=== PATIENT | male | born 1930 | race Caucasian/White ===

== ENCOUNTER 2017-07-12 16:02 | Emergency (ER) | payer MEDICARE ==
[~2017-07-12] VITALS: Ht 175.3 cm; Wt 108.9 kg
[~2017-07-12 16:02] MED LIST: ASPIR 8181 MG PO; ATROVENT HFA12.9 GM; ATROVENT INH; FINASTERIDE5 MG PO; INDOMETHACIN25 MG PO; LEVOTHYROXINE75 MCG PO; LORCET 101 TAB PO; LOVENOX30 MG/0.3 SC; METOPROLOL SUC200 MG PO; OMEPRAZOLE20 M1 PO; PROVENTIL HFA6.7 GM INH; SAW PALMETTO450 MG PO; TRAZODONE HCL100 MG PO; XARELTO15 MG PO
[2017-07-12] MEDS ORDERED: CEPHALEXIN500 MG PO (18:49)
== END 2017-07-12 18:55 | disposition home or self-care (01) ==
LOC: FSED 16:02
DX: S51.801A Unspecified open wound of right forearm, initial encounter (principal); W01.190A Fall on same level from slipping, tripping and stumbling with subsequent striking against furniture, initial encounter; Y92.013 Bedroom of single-family (private) house as the place of occurrence of the external cause
CPT/HCPCS: 99282

== ENCOUNTER → 2017-12-12 | Day surgery (SDC) | payer MEDICARE ==
[2017-12-11 10:37] LABS: BASOPHILS # (AUTO) 0.1 (0.0-0.1); BASOPHILS % 0.7 % (0.0-1.0); EOSINOPHILS # (AUTO) 0.4 (0.0-0.4); EOSINOPHILS % 4.8 % (0.0-6.0); HEMATOCRIT 39.3 % (38.2-49.6); HEMOGLOBIN 13.4 g/dL (14.0-18.0); LYMPHOCYTES # (AUTO) 1.4 (1.0-3.2); MEAN CORPUSCULAR HEMOGLOBIN 32.9 pg (28-32); MEAN CORPUSCULAR HGB CONC 34.1 g/dL (31-35); MEAN CORPUSCULAR VOLUME 96.6 fL (81-99); MONOCYTES # (AUTO) 0.8 (0.2-0.8); MONOCYTES % 8.8 % (4.4-11.3); NEUTROPHILS # (AUTO) 5.7 (2.1-6.9); NEUTROPHILS % 67.4 % (38.7-80.0); PLATELET COUNT 182 x10e3/uL (140-360); RED BLOOD COUNT 4.07 x10e6/uL (4.3-5.7); RED CELL DISTRIBUTION WIDTH 13.1 % (11.7-14.4)
[2017-12-11 10:48] LABS: INR 1.1; PROTHROMBIN TIME 13.4 seconds (11.9-14.5)
[2017-12-11 10:53] LABS: ANION GAP 14.7 mmol/L (8-16); BLOOD UREA NITROGEN 20 mg/dL (7-26); BUN/CREATININE RATIO 20 (6-25); CALCIUM 9.4 mg/dL (8.4-10.2); CARBON DIOXIDE 25 mmol/L (22-29); CHLORIDE 104 mmol/L (98-107); CREATININE, SERUM 0.99 mg/dL (0.72-1.25); EST GLOMERULAR FILTRATION RATE > 60 ML/MIN (60-); GLUCOSE 90 mg/dL (74-118); POTASSIUM 4.7 mmol/L (3.5-5.1); SODIUM 139 mmol/L (136-145)
--- NOTE | 2017-12-11 11:25 | Diagnostic Imaging Report ---
PROCEDURE: Frontal and lateral views of the chest. COMPARISON: Patients [facility], , CHEST 2 VIEWS, 03/15/2013, 12:38. INDICATIONS: PREOPERATIVE CHEST XRAY FOR PACEMAKER REPLACED FINDINGS: Lines/tubes: Stable left upper chest multilead cardiac device Lungs: The lungs are well inflated and clear. There is no evidence of pneumonia or pulmonary edema. Pleura: There is no pleural effusion or pneumothorax. Heart and mediastinum: Cardiac silhouette is unremarkable. Pulmonary vasculature is normal. Tortuous aorta Bones: No acute bony abnormality. Degenerative changes in the thoracic spine. Interval placement of left humeral head prosthesis. IMPRESSION: 1. No acute cardiopulmonary abnormalities. John Osborn M.D. Dictated by: John Osborn M.D. on 12/11/2017 at 11:29 Electronically approved by: John Osborn M.D. on 12/11/2017 at 11:29
[~2017-12-12] VITALS: Ht 167.6 cm; Wt 108.9 kg
[2017-12-12] VITALS (12 sets, daily range): BP systolic 144–168; BP diastolic 75–91
[~2017-12-12] MED LIST changes: +ALCORTIN A TOP; +BACITRACIN 50,000 UNIT VIAL ONE; +CEFAZOLIN SOD 1 GM VIAL ONE; +CENTRUM COMPLE1 EACH PO; +CEPHALEXIN500 MG PO; +DOCUSATE SODIU100 MG PO; +FENTANYL CITRATE/PF 100MCG/2 ML INJ ONE; +LIDOCAINE HCL 2% LOCAL 20 ML VIAL ONE; +MIDAZOLAM HCL 2 MG/2 ML VIAL ONE; +SODIUM CHLORIDE 0.9% 100 ML 100 ML ONE; +SODIUM CHLORIDE 0.9% 1000ML 1,000 ML ONE; +SODIUM CHLORIDE 0.9% 500ML 1,000 ML ONE; +SODIUM CHLORIDE 0.9% 500ML 500 ML ONE; +TAMSULOSIN HCL0.4 MG PO
--- NOTE | 2017-12-12 10:09 | Operative Report ---
DATE OF PROCEDURE: December 12, 2017 PROCEDURE: Dual-chamber pacemaker generator replacement and temporary pacemaker insertion. INDICATIONS: Sick sinus syndrome. COMPLICATIONS: None. ANESTHESIA: Versed, fentanyl and lidocaine. TECHNIQUE: The right groin was draped and prepped in the usual fashion. The area was anesthetized with lidocaine. A standard Seldinger technique was used to place a 6-Macedonian sheath into the right femoral vein without difficulty. Temporary pacemaker was inserted at the apex of the right ventricle. The patient was then redraped and reprepped. The left subclavicular area was anesthetized with lidocaine. A 10 blade scalpel was used to open the pacemaker pocket. The existing Medtronic generator was removed from the pocket. The pocket was irrigated with antibiotic solution. The leads were then attached to a new Medtronic generator. The pocket was irrigated with antibiotic solution. The generator was placed in the pocket and anchored in with some 2-0 silk. Two-0 Vicryl was then used for the subcutaneous closure and 2-0 Vicryl was used for subcuticular closure. There were no complications. CONCLUSION: Successful dual-chamber pacemaker replacement. Job#: [id number] REBA
== END | disposition home or self-care (01) ==
LOC: CATH LAB 06:20
PROVIDERS: ATTEND Internal Medicine Cardiovascular Disease
DX: I49.5 Sick sinus syndrome (principal); I44.2 Atrioventricular block, complete; I10 Essential (primary) hypertension; G47.30 Sleep apnea, unspecified; K21.9 Gastro-esophageal reflux disease without esophagitis; E07.9 Disorder of thyroid, unspecified; F32.9 Major depressive disorder, single episode, unspecified; Z01.810 Encounter for preprocedural cardiovascular examination; Z01.812 Encounter for preprocedural laboratory examination; Z01.818 Encounter for other preprocedural examination; Z68.38 Body mass index [BMI] 38.0-38.9, adult; Z87.891 Personal history of nicotine dependence; Z82.49 Family history of ischemic heart disease and other diseases of the circulatory system
CPT/HCPCS: 33228; 36415; 71046; 80048; 85025; 85610; 93005; C1785; J0690; J2001; J2250; J7030; J7040

== ENCOUNTER 2018-10-07 06:12 | Observation (INO) | payer MEDICARE, OTHER ==
[2018-10-02 11:28] LABS: BASOPHILS % 0.5 % (0.0-1.0); EOSINOPHILS # (AUTO) 0.3 (0.0-0.4); EOSINOPHILS % 3.2 % (0.0-6.0); HEMATOCRIT 38.5 % (38.2-49.6); HEMOGLOBIN 12.8 g/dL (14.0-18.0); LYMPHOCYTES # (AUTO) 1.4 (1.0-3.2); LYMPHOCYTES % 17.4 % (18.0-39.1); MEAN CORPUSCULAR HEMOGLOBIN 32.7 pg (28-32); MEAN CORPUSCULAR HGB CONC 33.2 g/dL (31-35); MEAN CORPUSCULAR VOLUME 98.2 fL (81-99); MONOCYTES # (AUTO) 0.7 (0.2-0.8); MONOCYTES % 9.1 % (4.4-11.3); NEUTROPHILS # (AUTO) 5.4 (2.1-6.9); PLATELET COUNT 169 x10e3/uL (140-360); RED BLOOD COUNT 3.92 x10e6/uL (4.3-5.7); RED CELL DISTRIBUTION WIDTH 13.2 % (11.7-14.4)
[2018-10-02 11:53] LABS: ALANINE AMINOTRANSFERASE 10 IU/L (0-55); ALBUMIN/GLOBULIN RATIO 0.8 (0.8-2.0); ALKALINE PHOSPHATASE 71 IU/L (40-150); ANION GAP 11.5 mmol/L (8-16); BLOOD UREA NITROGEN 18 mg/dL (7-26); BUN/CREATININE RATIO 17 (6-25); CALCIUM 8.9 mg/dL (8.4-10.2); CARBON DIOXIDE 25 mmol/L (22-29); CHLORIDE 105 mmol/L (98-107); CHOL/HDL RATIO 3.5 (3.9-4.7); CHOLESTEROL 147 MD/DL (0-199); CREATININE, SERUM 1.05 mg/dL (0.72-1.25); EST GLOMERULAR FILTRATION RATE > 60 ML/MIN (60-); GLUCOSE 80 mg/dL (74-118); HDL CHOLESTEROL 42 MG/DL (40-60); LDL CHOLESTEROL 86 MG/DL (60-130); POTASSIUM 4.5 mmol/L (3.5-5.1); SODIUM 137 mmol/L (136-145); TRIGLYCERIDES 95 MG/DL (0-149)
--- NOTE | 2018-10-02 11:57 | Diagnostic Imaging Report ---
EXAMINATION: PA and lateral views of the chest. COMPARISON: 12/11/2017 CLINICAL HISTORY: Preop for left heart catheter DISCUSSION: Lung volumes are low. No interval change in position of left subclavian approach implantable cardiac device body or leads. Left shoulder prosthesis partially visualized. Enlargement of the cardiac silhouette with prominence of the central pulmonary vasculature. Trace blunting of the left posterior costophrenic sulcus compatible with a small effusion. No acute osseous abnormality. IMPRESSION: Low lung volumes with pulmonary vascular congestion and a trace left pleural effusion. Signed by: Dr. Solomon Arnett M.D. on 10/02/2018 11:54 AM
[2018-10-02 12:53] LABS: INR 1.01; PARTIAL THROMBOPLASTIN TIME 28.3 seconds (23.8-35.5); PROTHROMBIN TIME 13.8 seconds (11.9-14.5)
[2018-10-07] VITALS (18 sets, daily range): BP systolic 133–153; BP diastolic 66–87
[~2018-10-07] VITALS: Ht 175.3 cm; Wt 108.9 kg
[~2018-10-07 06:12] MED LIST changes: -BACITRACIN 50,000 UNIT VIAL ONE; -CEFAZOLIN SOD 1 GM VIAL ONE; -FENTANYL CITRATE/PF 100MCG/2 ML INJ ONE; -LIDOCAINE HCL 2% LOCAL 20 ML VIAL ONE; -MIDAZOLAM HCL 2 MG/2 ML VIAL ONE; +MYRBETRIQ25 MG PO; +PROAIR HFA INH8.5 GM IH; -SODIUM CHLORIDE 0.9% 100 ML 100 ML ONE; -SODIUM CHLORIDE 0.9% 1000ML 1,000 ML ONE; -SODIUM CHLORIDE 0.9% 500ML 1,000 ML ONE; -SODIUM CHLORIDE 0.9% 500ML 500 ML ONE; +SPIRIVA18 MCG INH
[2018-10-07] MEDS ORDERED: FENTANYL CITRATE/PF 100MCG/2 ML INJ ONE (07:03)
[2018-10-07] MEDS ORDERED: HEPARIN SOD (PORCINE) 1000 UNIT/ML 30ML ONE (07:03)
[2018-10-07] MEDS ORDERED: LIDOCAINE HCL 2% LOCAL 20 ML VIAL ONE ×2 (07:03→08:13)
[2018-10-07] MEDS ORDERED: MIDAZOLAM HCL 2 MG/2 ML VIAL ONE ×2 (07:03→08:10)
[2018-10-07] MEDS ORDERED: NITROGLYCERIN/D5W 200 MCG/ML 250 ML ONE (07:04)
[2018-10-07] MEDS ORDERED: SODIUM CHLORIDE 0.9% 1000ML 1,000 ML ONE (07:04)
[2018-10-07] MEDS ORDERED: IOPAMIDOL 370 MG/ML 200 ML INFUS..BTL INJ ONE ×2 (07:04→08:10)
[2018-10-07] MEDS ORDERED: HEPARIN SOD/SOD CHLORIDE 2,000 ML ONE (07:04)
[2018-10-07] MEDS ORDERED: HEPARIN SOD/SOD CHLORIDE 1,000 ML ONE (08:10)
[2018-10-07] MEDS ORDERED: BIVALRIUDIN 250 MG/VIAL VIAL IV ONE (08:26)
[2018-10-07] MEDS ORDERED: CLOPIDOGREL BISULFATE 75 MG TAB ONE (08:27)
[2018-10-07] MEDS ORDERED: ASPIRIN 325 MG TAB ONE (08:27)
[2018-10-07] MEDS ORDERED: SODIUM CHLORIDE 0.9% 50ML 50 ML ONE (08:27)
[2018-10-07] MEDS ORDERED: ATROPINE SULFATE 0.1 MG/ML 10ML SYR ONE (08:32)
--- NOTE | 2018-10-07 08:45 | NUR ---
0845 Received pt form laboratory cureman Report written card per Toro PICKETT, Bed request per tele-tracker and house supv. Salud RN informed.[facility] with RCA stent fix with rt groin Mynx. No gross signs of pain,pallor,pressure or dysrhythmia.Left iv infusing w/o s/s infiltration. Family at bedside Scarlett . Resp shallow and regular 98% Room air.Back to baseline orientation Pt is SYCUAN. Abdomen soft and non tender denies necessity to defecate or urinate. Assist with po intake pt has no teeth Family will obtain from home later Bilateral PPx4 PD/DP. Denies CP or SOB. want tele observation tonight. Teletracker assigned 182. Side rail up call light at bedside ,side rails up Bed in low position. ds/rn
[2018-10-07] MEDS ORDERED: NITROGLYCERIN 0.4 MG SUBL SL PRN (09:00)
[2018-10-07] MEDS ORDERED: CLOPIDOGREL BISULFATE 75 MG TAB PO SCH (09:00)
[2018-10-07] MEDS: METOPROLOL TARTRATE 25 MG TAB PO SCH ×2 (09:00→17:14)
[2018-10-07] MEDS ORDERED: ASPIRIN 325 MG TAB PO SCH (09:00)
[2018-10-07] MEDS ORDERED: ASPIRIN 81 MG ENTERIC COATED PO SCH (09:15)
--- NOTE | 2018-10-07 10:15 | NUR ---
1015am Called report to Kody Person [id number]. Down time till 1300pm had Rt Mynx closure to groin. No gross signs pain ,pallor,pressure,or dysthrhmia. PPx4 present. Face to face report. Transported to floor care with tele and stretcher. Denies CP or SOB. Pt has copy os stent,mynx card and diagram of case. at bedside and present during escort. Tolerating po intake. gage/kody
--- NOTE | 2018-10-07 10:50 | NUR ---
Patient arrived to unit via stretcher in flat position. He was assisted to bed with staff help and tolerated well. Right groin intact, soft and no hematoma palpated. Spouse at the bedside. Patient instructed to lay flat until 1300 and voiced understanding. + pedal pulse. Will continue to monitor.
[2018-10-07] MEDS: SODIUM CHLORIDE 0.9% 1000ML 1,000 ML IV SCH ×2 (13:03→18:55)
--- NOTE | 2018-10-07 13:45 | NUR ---
Patient assisted to bathroom and back without any complaints. Call reyes and spouse by bedside
[2018-10-07] MEDS ORDERED: ACETAMINOPHEN 325 MG TAB PO PRN (14:45)
--- NOTE | 2018-10-07 15:06 | Operative Report ---
DATE OF PROCEDURE: SURGEON: Solomon Tejada MD PROCEDURES: 1. Left heart with an intracoronary stent placement in the right coronary artery. 2. Left heart catheterization. INDICATION: 1. Angina. 2. Coronary artery disease. ANESTHESIA: Versed, fentanyl, and lidocaine. COMPLICATIONS: None. TECHNIQUE: The right groin was draped and prepped in the usual fashion. The area was anesthetized with lidocaine. Standard Seldinger technique was used to place a 6-Kuwaiti sheath into the right femoral artery without difficulty. A JL4 catheter was used to selectively engage the left coronary artery. A 3DRC catheter was used to engage the right coronary artery and a pigtail catheter was used to perform a left ventriculogram. Attention was then turned to the 70% to 80% stenosis of the distal right coronary artery. An AL2 guiding catheter was used to selectively engage the right coronary artery. The patient was bolused with Angiomax and still added on an Angiomax drip. The patient was given 600 mg of Plavix. A Whisper wire was used to cross 70% to 80% stenosis. Stent was deployed directly at the site of stenosis, it was a 3.0 x 16 mm Synergy stent, which was deployed up to 16 atmospheres for 30 seconds. The stent was then postdilated with a 12 mm x 3.0 mm noncompliant balloon. Mynx device was used for closure. There was no residual stenosis. There were no complications. RESULTS: As follows: 1. Normal left main trunk. 2. There is a large left anterior descending artery, which gave rise to medium-sized diagonal branch. There were areas of ectasia in the proximal and mid left anterior descending artery with mild stenosis. 3. There was a medium-sized AV circumflex artery, which gave rise to a large bifurcating obtuse marginal branch. There was minimal disease in the circumflex system. 4. There was a large dominant right coronary artery, with some proximal areas of ectasia and 70% to 80% distal stenosis. 5. There was normal left ventricular size and function with an ejection fraction of 55% to 60%. There was [id number] mitral regurgitation. CONCLUSION: Successful stent placement in the right coronary artery without complication. Solomon Tejada MD [facility]/MODL /[id number] cc: Telly Nagy MD
--- NOTE | 2018-10-07 19:07 | NUR ---
Report received and walking rounds complete. Pt resting in bed and in no apparent distress. Pt on room air and tele. Pt groin site assessed with day shift nurse. All safety measures ensured. Pt encouraged to use call reyes for assistance. Pts to stay overnight.
[2018-10-07] MEDS ORDERED: ATORVASTATIN 20 MG TAB PO SCH (21:00)
[2018-10-08 00:31] VITALS: BP 137/76
[2018-10-08] MEDS: SODIUM CHLORIDE 0.9% 1000ML 1,000 ML IV SCH (05:04)
[2018-10-08 05:18] VITALS: BP 154/70
[2018-10-08 05:42] LABS: BASOPHILS % 0.5 % (0.0-1.0); EOSINOPHILS # (AUTO) 0.3 (0.0-0.4); EOSINOPHILS % 4.1 % (0.0-6.0); LYMPHOCYTES # (AUTO) 1.6 (1.0-3.2); MEAN CORPUSCULAR HEMOGLOBIN 32.8 pg (28-32); MEAN CORPUSCULAR HGB CONC 33.3 g/dL (31-35); MEAN CORPUSCULAR VOLUME 98.4 fL (81-99); MONOCYTES # (AUTO) 0.9 (0.2-0.8); MONOCYTES % 10.9 % (4.4-11.3); NEUTROPHILS # (AUTO) 5.4 (2.1-6.9); PLATELET COUNT 151 x10e3/uL (140-360); RED BLOOD COUNT 3.66 x10e6/uL (4.3-5.7); RED CELL DISTRIBUTION WIDTH 13.3 % (11.7-14.4)
[2018-10-08 06:06] LABS: ALANINE AMINOTRANSFERASE 13 IU/L (0-55); ALBUMIN 2.8 g/dL (3.5-5.0); ALBUMIN/GLOBULIN RATIO 0.8 (0.8-2.0); ALKALINE PHOSPHATASE 53 IU/L (40-150); BLOOD UREA NITROGEN 14 mg/dL (7-26); BUN/CREATININE RATIO 14 (6-25); CALCIUM 8.7 mg/dL (8.4-10.2); CARBON DIOXIDE 22 mmol/L (22-29); CHLORIDE 107 mmol/L (98-107); CHOL/HDL RATIO 3.7 (3.9-4.7); CHOLESTEROL 139 MD/DL (0-199); CREATININE, SERUM 0.97 mg/dL (0.72-1.25); EST GLOMERULAR FILTRATION RATE > 60 ML/MIN (60-); GLUCOSE 89 mg/dL (74-118); HDL CHOLESTEROL 38 MG/DL (40-60); LDL CHOLESTEROL 85 MG/DL (60-130); SODIUM 136 mmol/L (136-145); TRIGLYCERIDES 80 MG/DL (0-149)
--- NOTE | 2018-10-08 07:15 | NUR ---
pt alert resp even and unlabored and no distress noted, pt right side groin dressing clean dry and intact. pt has family member at bedside, pt has call light in reach.
--- NOTE | 2018-10-08 07:22 | NUR ---
report given and walking rounds complete.
[2018-10-08] MEDS ORDERED: PLAVIX75 MG PO (07:25)
[2018-10-08] MEDS ORDERED: ASPIRIN EC81 MG PO (07:25)
[2018-10-08] MEDS ORDERED: LIPITOR20 MG PO (07:25)
[2018-10-08 08:00] VITALS: BP 153/84
--- NOTE | 2018-10-08 09:01 | NUR ---
pt discharged home with prescriptions , and was asked to follow up with his PCP and Spun Paste Machine Operator, pt iv site remove cath tip intact, no swelling no redness to site.
--- NOTE | 2018-10-09 04:51 | Discharge Summary ---
FINAL DIAGNOSES: 1. Angina. 2. Coronary artery disease. PROCEDURES PERFORMED: 1. Intracoronary stent placement in the right coronary artery. 2. Left heart catheterization. HOSPITAL COURSE: The patient was admitted for a left heart catheterization. The catheterization demonstrated 70% to 80% stenosis in the right coronary artery. An intracoronary stent was placed. The patient was observed overnight. The patient had no problems overnight. In the morning of the September, arrangements were made for the patient to be discharged. The patient was instructed to return to the office for followup in 1 week. The patient was given prescriptions for Lipitor 20 mg a day, clopidogrel 75 mg a day, aspirin 81 mg a day. Solomon Tejada MD [facility]/MODL /[id number] cc: Telly Nagy MD MTDD
== END 2018-10-08 09:14 | disposition home or self-care (01) ==
LOC: CATH LAB 06:12 → CATH LAB V 08:57 → IMCU 10:54
PROVIDERS: ADMIT Internal Medicine Cardiovascular Disease; ATTEND Internal Medicine Cardiovascular Disease
DX: I25.118 Atherosclerotic heart disease of native coronary artery with other forms of angina pectoris (principal); I44.2 Atrioventricular block, complete; I34.0 Nonrheumatic mitral (valve) insufficiency; I10 Essential (primary) hypertension; Z95.0 Presence of cardiac pacemaker; G47.30 Sleep apnea, unspecified; F32.9 Major depressive disorder, single episode, unspecified; Z01.810 Encounter for preprocedural cardiovascular examination; Z01.812 Encounter for preprocedural laboratory examination; Z01.818 Encounter for other preprocedural examination; Z68.36 Body mass index [BMI] 36.0-36.9, adult; Z87.891 Personal history of nicotine dependence; Z82.49 Family history of ischemic heart disease and other diseases of the circulatory system
CPT/HCPCS: 93458; C9600; 36415; 71046; 80053; 80061; 85025; 85610; 85730; 92928; 93005; C1760; C1769; C1874; G0378; J0583; J1644; J2001; J2250; J7030; Q9967

== ENCOUNTER 2019-01-28 14:26 | Inpatient (IN) | payer MEDICARE ==
[~2019-01-28] VITALS: Ht 175.3 cm; Wt 113.5 kg
[~2019-01-28 14:26] MED LIST changes: +ASPIRIN EC81 MG PO; +LIPITOR20 MG PO; +PLAVIX75 MG PO
[2019-01-28] MEDS ORDERED: IPRATROPIUM BROMIDE 0.02% 2.5 ML NEB NEB STA (14:58)
[2019-01-28] MEDS ORDERED: ALBUTEROL SULF 0.083% NEB SOLN 3 ML NEB NEB NR (15:00)
--- NOTE | 2019-01-28 15:33 | Diagnostic Imaging Report ---
Chest, 1 view, 01/28/2019. History: Shortness of breath, chest pain. Comparison: 10/02/2018. Findings: The cardiomediastinal silhouette and pulmonary vasculature are within normal limits for a portable exam. Linear opacities are present at the lung bases with minimal blunting of the costophrenic sulci. Left subclavian dual-lead pacer is unchanged in position. There are no acute osseous or soft tissue abnormalities. Impression: Bibasilar atelectasis with small bilateral pleural effusions versus pleural thickening. Signed by: Ger Lombardi on 01/28/2019 3:30 PM
[2019-01-28 16:23] LABS: BASOPHILS % 0.4 % (0.0-1.0); EOSINOPHILS # (AUTO) 0.3 (0.0-0.4); EOSINOPHILS % 2.9 % (0.0-6.0); HEMATOCRIT 37.9 % (38.2-49.6); HEMOGLOBIN 12.6 g/dL (14.0-18.0); LYMPHOCYTES # (AUTO) 1.1 (1.0-3.2); LYMPHOCYTES % 12.6 % (18.0-39.1); MEAN CORPUSCULAR HEMOGLOBIN 32.6 pg (28-32); MEAN CORPUSCULAR HGB CONC 33.2 g/dL (31-35); MEAN CORPUSCULAR VOLUME 97.9 fL (81-99); MONOCYTES # (AUTO) 0.8 (0.2-0.8); MONOCYTES % 8.9 % (4.4-11.3); NEUTROPHILS # (AUTO) 6.7 (2.1-6.9); NEUTROPHILS % 74.4 % (38.7-80.0); PLATELET COUNT 174 x10e3/uL (140-360); RED BLOOD COUNT 3.87 x10e6/uL (4.3-5.7); RED CELL DISTRIBUTION WIDTH 13.8 % (11.7-14.4)
[2019-01-28 16:31] LABS: BILIRUBIN,URINE NEGATIVE (NEGATIVE); CLARITY,URINE SL CLOUDY (CLEAR); COLOR,URINE YELLOW (YELLOW); KETONES,URINE NEGATIVE (NEGATIVE); LEUKOCYTE ESTERASE ,URINE NEGATIVE (NEGATIVE); NITRITE,URINE NEGATIVE (NEGATIVE); PROTEIN,URINE DIPSTICK NEGATIVE (NEGATIVE); URINE UROBILINOGEN 0.2 mg/dL (0.2 - 1)
[2019-01-28 16:40] LABS: INR 1.08; PROTHROMBIN TIME 14.5 seconds (11.9-14.5)
[2019-01-28 16:41] LABS: PARTIAL THROMBOPLASTIN TIME 29.4 seconds (23.8-35.5)
[2019-01-28 16:47] LABS: RBC,URINE 0-5 /HPF (0-5)
[2019-01-28 16:48] LABS: BACTERIA,URINE FEW /HPF; EPITHELIAL CELLS,URINE RARE /LPF
[2019-01-28 16:48] LABS: ALANINE AMINOTRANSFERASE 9 IU/L (0-55); ALBUMIN 3.2 g/dL (3.5-5.0); ALBUMIN/GLOBULIN RATIO 0.9 (0.8-2.0); ALKALINE PHOSPHATASE 72 IU/L (40-150); ANION GAP 12.6 mmol/L (8-16); BLOOD UREA NITROGEN 18 mg/dL (7-26); BUN/CREATININE RATIO 18 (6-25); CALCIUM 8.7 mg/dL (8.4-10.2); CARBON DIOXIDE 25 mmol/L (22-29); CHLORIDE 103 mmol/L (98-107); CREATINE KINASE 49 IU/L (30-200); EST GLOMERULAR FILTRATION RATE > 60 ML/MIN (60-); GLUCOSE 95 mg/dL (74-118); POTASSIUM 4.6 mmol/L (3.5-5.1); SODIUM 136 mmol/L (136-145)
[2019-01-28] MEDS ORDERED: ASPIRIN 81 MG CHEW TAB PO ONE (18:15)
[2019-01-28] MEDS ORDERED: PLAVIX75 MG PO (18:28)
[2019-01-28] MEDS: FUROSEMIDE INJ 10 MG/ML 4 ML VIAL IV SCH (18:56)
[2019-01-28] MEDS ORDERED: TRAZODONE HCL 50 MG TAB PO PRN (19:00)
[2019-01-28] MEDS ORDERED: FUROSEMIDE 20 MG TAB PO NR (21:00)
[2019-01-28] MEDS: TAMSULOSIN HCL 0.4 MG CAP PO SCH (22:06)
[2019-01-28 22:14] VITALS: BP 156/77
[2019-01-28 22:20] VITALS: BP 142/77
[2019-01-29] VITALS (7 sets, daily range): BP systolic 134–163; BP diastolic 74–87
[2019-01-29 00:31] LABS: CREATINE KINASE MB 1.4 ng/mL (0-5.0)
[2019-01-29] MEDS: ALBUTEROL/IPRATROPIUM 3 ML NEB NEB SCH ×4 (01:20→19:40)
[2019-01-29] MEDS ORDERED: LEVOTHYROXINE88 MCG PO (07:13)
[2019-01-29] MEDS: LEVOTHYROXINE SODIUM 88 MCG TAB PO SCH (07:30)
[2019-01-29] MEDS: FAMOTIDINE 20 MG TAB PO SCH ×2 (07:30→16:43)
--- NOTE | 2019-01-29 07:30 | NUR ---
Received patient this morning and a/ox3, in bed, O2 in place at 2L NC, some SOB on exertion, LS with faint scattered wheezing, will monitor
--- NOTE | 2019-01-29 08:51 | NUR ---
Orders in place for meds, rounds by Dr. Herring and patient diuresed for CHF exacerb, Echo ordered, BLE +2 edema, weight daily and Home O2 eval in place, will monitor.
[2019-01-29] MEDS: FUROSEMIDE INJ 10 MG/ML 4 ML VIAL IV SCH ×2 (08:53→16:43)
[2019-01-29] MEDS: MYBETRIQ 25 MG PO SCH (08:54)
[2019-01-29] MEDS: DOCUSATE SODIUM 100 MG CAP PO SCH ×2 (08:54→16:43)
[2019-01-29] MEDS: CLOPIDOGREL BISULFATE 75 MG TAB PO SCH (08:54)
[2019-01-29] MEDS: METOPROLOL SUCCINATE 50 MG TAB XL PO SCH (08:54)
[2019-01-29] MEDS: FINASTERIDE 5 MG TAB PO SCH (08:54)
[2019-01-29] MEDS: TIOTROPIUM 18 MCG INH POWDER INH SCH (09:00)
[2019-01-29] MEDS: HEPARIN SOD (PORCINE) 5,000 UNIT/ML VIAL SC SCH ×2 (09:00→21:43)
[2019-01-29] MEDS ORDERED: PANTOPRAZOLE SOD 40 MG TABEC PO SCH (09:00)
[2019-01-29] MEDS ORDERED: CLOPIDOGREL BISULFATE 75 MG TAB PO SCH (09:00)
[2019-01-29] MEDS ORDERED: FUROSEMIDE 20 MG TAB PO SCH (09:00)
--- NOTE | 2019-01-29 10:41 | NUR ---
ORDERS FOR HOME 02 EVAL AWAIT 02 SATS IMM EXPLAINED TO PT, SIGNED BY PT AND PLACED IN CHART COPY TO PT IN CARE TRANSITIONS FOLDER
--- NOTE | 2019-01-29 12:24 | NUR ---
EDUCATED ABOUT IMM, SIGNED, FILED IN CHART, WITH COPY LEFT WITH FAMILY AT BEDSIDE.
--- NOTE | 2019-01-29 14:08 | History and Physical ---
REASON FOR ADMISSION: An 88-year-old male comes in with shortness of breath. HISTORY OF PRESENT ILLNESS: Mr. Robin Dawson with history of dyspnea for the last two weeks, exacerbated by exertion and also with chest discomfort and dyspnea on exertion. The patient continues to feel hypoxic and dyspneic and the patient came in was admitted for acute congestive heart failure and also COPD exacerbation. PAST MEDICAL HISTORY: History of hypertension, history of hypothyroidism, history of coronary artery disease, history of hyperlipidemia, history of depression, history of BPH. PAST SURGICAL HISTORY: History of cholecystectomy, history of multiple PCIs by Cardiology, history of knee replacement, shoulder surgery and also vein stripping. The patient also had shoulder surgery as mentioned above. MEDICATIONS: Mr. Dawson takes are albuterol inhaler for COPD, clopidogrel 75 mg daily, docusate 100 mg b.i.d., finasteride 5 mg daily, metoprolol 200 mg ER daily, Myrbetriq 25 mg, multivitamins daily, omeprazole 20 mg daily, tamsulosin 0.4 mg daily, Spiriva 18 mcg daily, trazodone 100 mg, two tablets at nighttime. ALLERGIES: NO KNOWN DRUG ALLERGIES NOTED. SOCIAL HISTORY: No EtOH. No IV drug abuse. History of smoking in the past. REVIEW OF SYSTEMS: Positive for chest pain. Positive for shortness of breath. No nausea, vomiting, or diarrhea. No constipation. No rectal bleeding. No hematochezia. No hematemesis. No orthopnea. No PND. No diplopia. No blurry vision. Positive for hard of hearing and also decreased memory. PHYSICAL EXAMINATION: VITAL SIGNS: Temperature is 97.3, pulse of 60, respirations of 22, blood pressure is 148/75, pulse oximetry of 99% on 2 L of oxygen. HEENT: Normocephalic, atraumatic. The patient is dyspneic at this time, obese. CVS: S1, S2 normal. Regular rate and rhythm. ABDOMEN: Nontender, nondistended. LUNGS: Decreased air entry into all lung bases, positive for crackles at bases. EXTREMITIES: No clubbing. No cyanosis. Positive for 2+ edema. NEUROLOGIC: Alert and oriented x3. No motor or sensory deficit noted. IMAGING DATA: EKG, no acute ischemia or paced rhythm. The patient has a history of pacemaker and also chest x-ray, shows bibasilar atelectasis with small bilateral pleural effusion versus pleural thickening. LABORATORY VALUES: White count is 9, hemoglobin of 12.6, hematocrit 37.9. Chemistries; sodium 136, BUN of 18, creatinine of 1. Troponin was 0.005, trended to 0.019. BNP was 1108.1. ASSESSMENT: 1. Acute on chronic congestive heart failure. 2. Chronic obstructive pulmonary disease exacerbation. 3. History of hypothyroidism. 4. History of hyperlipidemia. 5. History of coronary artery disease. PLAN: Plan is to continue with IV diuresis. The patient has been started on albuterol and Atrovent treatments of Lasix 20 mg twice a day. Metoprolol has been reinstated, finasteride has been reinstated. We will continue to monitor the patient and also restart his thyroid medication and recheck his thyroid medications. Further recommendation per clinical course. We will continue to monitor the patient. A consult with Dr. Tejada and also Dr. Herring will be done. O2 supplementation for COPD and continue taking his labs in the morning and DVT prophylaxis. MD LISET Gregory/MODL /[id number]
--- NOTE | 2019-01-29 14:43 | Consultation ---
DATE OF CONSULTATION: Cardiology Consultation CHIEF COMPLAINT: The patient is an 88-year-old with shortness of breath. HISTORY OF PRESENT ILLNESS: The patient is an 88-year-old, who has had progressive shortness of breath for about 6 weeks. The patient has noticed increased fluid buildup peripherally. The patient has no chest pain. No syncope. No dizziness. PAST MEDICAL HISTORY: Significant for: 1. Sick sinus syndrome and permanent pacemaker placement. 2. History of chronic diastolic congestive heart failure. 3. History of peripheral vascular disease. 4. History of coronary artery disease and previous stent placement. MEDICATIONS: At home include clopidogrel, Colace, metoprolol, and trazodone. SOCIAL HISTORY: The patient does not drink, does not smoke. FAMILY HISTORY: There is no known family history of coronary artery disease. PHYSICAL EXAMINATION: GENERAL: The patient is an older male, in no obvious distress. VITAL SIGNS: Included a temperature of 97.3, blood pressure of 148/76, and pulse is 60. HEAD, EARS, EYES, NOSE, AND THROAT: The patient's cranium was normocephalic and atraumatic. Extraocular muscles were intact. Sclerae were anicteric. Pupils were equal, round, and reactive to light. NECK: Supple. No jugular venous distention. No carotid bruits. CHEST: Demonstrated rhonchi bilaterally. CARDIAC: Demonstrated normal S1 and S2 with a short 2/6 systolic murmur. ABDOMEN: Demonstrated good bowel sounds. No tenderness and no masses. EXTREMITIES: There is no clubbing. There was 2+ edema bilaterally. NEUROLOGIC: The patient was awake and alert. The patient was moving all of his extremities. DIAGNOSTIC DATA: The patient's EKG demonstrated AV sequential pacing. IMPRESSION: The patient is an 88-year-old with [id number] diastolic heart failure. RECOMMENDATIONS: 1. The patient will need to be diuresed with IV Lasix. 2. An echocardiogram has been ordered to evaluate the left ventricular size and function. Solomon Tejada MD [facility]/MODL /[id number] cc: Telly Nagy MD
--- NOTE | 2019-01-29 14:53 | NUR ---
Patient alert and responsive, no resp distress, some SOB and continues on O2 2L NC, will monitor.
--- NOTE | 2019-01-29 15:13 | Consultation ---
DATE OF CONSULTATION: Pulmonary Consultation Patient of Dr. Telly Nagy and Dr. Solomon Tejada, usually followed at the [facility]. HISTORY OF PRESENT ILLNESS: [place] 88-year-old gentleman accompanied by his , called yesterday requesting permission to go to the emergency room because of dyspnea on exertion, which has been progressive over the last 10 days and intolerance to eat. He was recently evaluated by Dr. Tejada. His pacemaker generator had been changed and a stent was placed in the leg. PAST MEDICAL HISTORY: He has a history of being hard of hearing, hypertensive, BPH, severe obstructive sleep apnea, on CPAP at a level of 16. He also has a history of hypothyroidism and urinary frequency. PAST SURGICAL HISTORY: He has had hernia surgery, shoulder replacement, knee surgery. SOCIAL HISTORY: He is an ex-smoker, quit in the 70s. Worked as a fair. FAMILY HISTORY: Also, positive for coronary artery disease. HOME MEDICATIONS: Have included albuterol, vitamins, trazodone, Plavix, Colace, finasteride, Levoxyl, metoprolol, Myrbetriq, omeprazole, Flomax, and Spiriva. He was started on Lasix last night. IMAGING DATA: His chest x-ray suggested congestive heart failure with small bilateral pleural effusions. PHYSICAL EXAMINATION: VITAL SIGNS: Temperature 97.3, pulse 60, respirations 20, blood pressure 148/75. HEENT: Head normocephalic, atraumatic. Eyes, extraocular movements intact. LUNGS: Diminished breath sounds at bases. HEART: Regular rhythm. ABDOMEN: Nontender. EXTREMITIES: Nonedematous. IMPRESSION AND PLAN: Hypertension, congestive heart failure, sleep apnea, mild obstructive pulmonary disease. Screening spirometries in the past have been restricted. BNP was of 1100, hemoglobin 12.9, likely anemia of chronic disease. Consider adjustment of his blood pressure medicine, echocardiogram, cautious diuresis. The patient feels better, is anxious to go home. We will defer blood pressures and therapy of heart failure per Dr. Tejada. Thank you for this kind referral. MD OSMIN Marques/MODL /[id number]
[2019-01-29 17:15] LABS: CREATINE KINASE MB 1.8 ng/mL (0-5.0)
--- NOTE | 2019-01-29 18:55 | NUR ---
Received report for oncoming nurse. call light within reach. Patient in bed. at bedside.
[2019-01-29] MEDS: TAMSULOSIN HCL 0.4 MG CAP PO SCH (21:39)
[2019-01-29] MEDS ORDERED: TRAMADOL HCL 50 MG TAB PO PRN (22:21)
--- NOTE | 2019-01-29 22:21 | NUR ---
Called and talked Dr. Salomon who is covering for Dr. Nagy about patient complaining of pain in his head. Dr. Salomon said to give tramadol 50 mg for pain q6 PRN.
[2019-01-30] VITALS (7 sets, daily range): BP systolic 131–168; BP diastolic 75–90
[2019-01-30] MEDS: ALBUTEROL/IPRATROPIUM 3 ML NEB NEB SCH ×4 (01:15→18:31)
[2019-01-30] MEDS: LEVOTHYROXINE SODIUM 88 MCG TAB PO SCH (05:57)
[2019-01-30 05:58] LABS: BASOPHILS % 0.5 % (0.0-1.0); EOSINOPHILS # (AUTO) 0.3 (0.0-0.4); EOSINOPHILS % 3.8 % (0.0-6.0); HEMATOCRIT 38.5 % (38.2-49.6); HEMOGLOBIN 12.7 g/dL (14.0-18.0); LYMPHOCYTES # (AUTO) 1.5 (1.0-3.2); LYMPHOCYTES % 18.8 % (18.0-39.1); MEAN CORPUSCULAR HEMOGLOBIN 32.2 pg (28-32); MEAN CORPUSCULAR VOLUME 97.5 fL (81-99); MONOCYTES # (AUTO) 0.8 (0.2-0.8); MONOCYTES % 9.7 % (4.4-11.3); NEUTROPHILS # (AUTO) 5.4 (2.1-6.9); NEUTROPHILS % 66.5 % (38.7-80.0); PLATELET COUNT 162 x10e3/uL (140-360); RED BLOOD COUNT 3.95 x10e6/uL (4.3-5.7); RED CELL DISTRIBUTION WIDTH 13.7 % (11.7-14.4)
[2019-01-30 06:12] LABS: ANION GAP 12.8 mmol/L (8-16); BLOOD UREA NITROGEN 22 mg/dL (7-26); BUN/CREATININE RATIO 21 (6-25); CALCIUM 8.8 mg/dL (8.4-10.2); CARBON DIOXIDE 31 mmol/L (22-29); CHLORIDE 101 mmol/L (98-107); CREATININE, SERUM 1.06 mg/dL (0.72-1.25); EST GLOMERULAR FILTRATION RATE > 60 ML/MIN (60-); GLUCOSE 85 mg/dL (74-118); POTASSIUM 3.8 mmol/L (3.5-5.1); SODIUM 141 mmol/L (136-145)
[2019-01-30 06:38] LABS: FREE THYROXINE INDEX 2.8516 (1.4-3.8); THYROID STIMULATING HORMONE 3.256 uIU/mL (0.350-4.940)
--- NOTE | 2019-01-30 07:09 | NUR ---
Gave report to oncoming nurse. call light within reach. Patient in bed.
[2019-01-30] MEDS: FAMOTIDINE 20 MG TAB PO SCH ×2 (07:30→16:13)
--- NOTE | 2019-01-30 07:58 | NUR ---
Received patient this morning, a/ox3, in bed and no apparent distress, call light within reach and will monitor.
[2019-01-30] MEDS: MYBETRIQ 25 MG PO SCH (09:00)
[2019-01-30] MEDS: FINASTERIDE 5 MG TAB PO SCH (09:40)
[2019-01-30] MEDS: CLOPIDOGREL BISULFATE 75 MG TAB PO SCH (09:40)
[2019-01-30] MEDS: PANTOPRAZOLE SOD 40 MG TABEC PO SCH (09:40)
[2019-01-30] MEDS: FUROSEMIDE INJ 10 MG/ML 4 ML VIAL IV SCH ×2 (09:41→16:13)
[2019-01-30] MEDS: METOPROLOL SUCCINATE 50 MG TAB XL PO SCH (09:41)
[2019-01-30] MEDS: DOCUSATE SODIUM 100 MG CAP PO SCH ×2 (09:41→16:13)
[2019-01-30] MEDS: HEPARIN SOD (PORCINE) 5,000 UNIT/ML VIAL SC SCH ×2 (09:41→20:47)
[2019-01-30] MEDS: TIOTROPIUM 18 MCG INH POWDER INH SCH (09:45)
[2019-01-30] MEDS ORDERED: LACTULOSE SYRUP 20 GM/30 ML UDC PO NR (14:30)
--- NOTE | 2019-01-30 16:33 | NUR ---
Nutrition Screen Note RD Recommendation for Physician: 1.Continue with current Cardiac Diet; Fluids per MD Plan of Care: RD following, monitoring for tolerance and adequacy Nutrition reason for involvement: Nutrition Risk Trigger- Diagnosis Primary Diagnose(s): Dyspnea, CHF PMH: History of hypertension, hypothyroidism, coronary artery disease, hyperlipidemia, depression, BPH Ht: 69in Wt: 250lbs BMI: 36.91kg/m2 IBW:160lbs +/- 10% RD Assessment: (01/30) Chart reviewed. Labs and meds reviewed. This is an 88 y/o M who presents for dypsnea and possible new onset of CHF. Patient on breathing machine during time of visit, but was able to participate in nutrition visit. Patients at bedside and provided most of patients food and nutrition related hx. PCT recorded 75-100% meal intake. Reports good appetite and intake at home, mostly following a heart healthy diet. Weight has been stable. No GI complaints reported. Patient wears dentures but denied any difficulties with chewing or swallowing. Will continue to monitor and follow. Current Diet: Cardiac Diet Malnutrition Evaluation (01/30) The patient does not meet criteria for a specified degree of malnutrition at this time. Will re-evaluate at follow-up as appropriate. Diet Education Needs Assessment: Diet education indicated, discussed heart healthy CHF diet with patient and . Learner(s): pt and Barriers: none Cultural/Language Modifications: No cultural/language modifications noted Readiness: acceptance Method: explanation/ discussion, handout Topics: Heart Failure diet, limiting sodium in diet, nutrition label reading and overall general healthy eating patterns Understanding/Compliance: Expect good understanding/compliance from pt and who mostly provides patients meal. Will benefit from reinforcement. All questions have been answered. Nutrition Care Level: Low Signed: Piedad Osborne, MS, RDN, LD
--- NOTE | 2019-01-30 17:43 | NUR ---
Patient offered 2 cans of prune juice, had lactulose, no BM yet and will monitor, no resp distress and will monitor.
--- NOTE | 2019-01-30 18:42 | NUR ---
GOT REPORT FROM PREVIOUS NURSE. CALL LIGHT WITHIN REACH. PATIENT IN THE CHAIR. AT BEDSIDE.
[2019-01-30] MEDS ORDERED: SOD PHOSPHATE/SOD BIPHOSPHATE ENEMA 132 ML BTL PR ONE (20:15)
[2019-01-30] MEDS: TAMSULOSIN HCL 0.4 MG CAP PO SCH (20:47)
[2019-01-31] VITALS: BP 151/73
[2019-01-31] MEDS: ALBUTEROL/IPRATROPIUM 3 ML NEB NEB SCH ×3 (01:00→13:00)
[2019-01-31] MEDS ORDERED: SOD PHOSPHATE/SOD BIPHOSPHATE ENEMA 132 ML BTL PR ONE (02:00)
[2019-01-31 04:00] VITALS: BP 158/74
[2019-01-31] MEDS: LEVOTHYROXINE SODIUM 88 MCG TAB PO SCH (05:54)
[2019-01-31] MEDS: TIOTROPIUM 18 MCG INH POWDER INH SCH (06:46)
--- NOTE | 2019-01-31 07:21 | NUR ---
Gave report to oncoming nurse. Call light within reach. Patient in bed.
[2019-01-31 07:37] VITALS: BP 157/77
[2019-01-31 09:00] VITALS: BP 157/77
[2019-01-31] MEDS: MYBETRIQ 25 MG PO SCH (09:00)
[2019-01-31] MEDS ORDERED: CHLORASEPTIC SPRAY 177 ML BTL MM PRN ×2 (09:45→15:00)
[2019-01-31] MEDS: FUROSEMIDE INJ 10 MG/ML 4 ML VIAL IV SCH (09:55)
[2019-01-31] MEDS: CLOPIDOGREL BISULFATE 75 MG TAB PO SCH (09:55)
[2019-01-31] MEDS: FINASTERIDE 5 MG TAB PO SCH (09:56)
[2019-01-31] MEDS: DOCUSATE SODIUM 100 MG CAP PO SCH ×2 (09:56→16:18)
[2019-01-31] MEDS: PANTOPRAZOLE SOD 40 MG TABEC PO SCH (09:56)
[2019-01-31] MEDS: FAMOTIDINE 20 MG TAB PO SCH ×2 (10:00→16:18)
[2019-01-31] MEDS: HEPARIN SOD (PORCINE) 5,000 UNIT/ML VIAL SC SCH (10:01)
[2019-01-31] MEDS ORDERED: CITRATE OF MAGNESIA 300ML BOTTLE PO ONE (11:00)
[2019-01-31] MEDS: METOPROLOL SUCCINATE 50 MG TAB XL PO SCH (11:16)
[2019-01-31 11:44] VITALS: BP 144/74
[2019-01-31 16:22] VITALS: BP 150/74
[2019-01-31] MEDS ORDERED: FUROSEMIDE INJ 10 MG/ML 2 ML VIAL IV SCH (17:00)
--- NOTE | 2019-01-31 17:30 | NUR ---
Patient discharged home, verbalized understanding of d/c instructions.
== END 2019-01-31 17:26 | disposition home or self-care (01) | DRG 292 ==
LOC: ER 14:26 → ERHOLD 18:12 → MED/SURG 22:15
PROVIDERS: ADMIT Family Medicine; ATTEND Family Medicine
DX: I11.0 Hypertensive heart disease with heart failure (principal); J44.1 Chronic obstructive pulmonary disease with (acute) exacerbation; I50.33 Acute on chronic diastolic (congestive) heart failure; E03.9 Hypothyroidism, unspecified; I25.10 Atherosclerotic heart disease of native coronary artery without angina pectoris; F32.9 Major depressive disorder, single episode, unspecified; E78.5 Hyperlipidemia, unspecified; N40.0 Benign prostatic hyperplasia without lower urinary tract symptoms; H91.90 Unspecified hearing loss, unspecified ear; Z95.0 Presence of cardiac pacemaker; D63.8 Anemia in other chronic diseases classified elsewhere; I73.9 Peripheral vascular disease, unspecified; E11.9 Type 2 diabetes mellitus without complications; E66.9 Obesity, unspecified; Z68.36 Body mass index [BMI] 36.0-36.9, adult; G47.33 Obstructive sleep apnea (adult) (pediatric); K21.9 Gastro-esophageal reflux disease without esophagitis; Z95.5 Presence of coronary angioplasty implant and graft
CPT/HCPCS: 36415; 71045; 80048; 80053; 81001; 82550; 82553; 83880; 84436; 84443; 84479; 84484; 85025; 85610; 85730; 87086; 93005; 93306; 94640; 94660; 99285; J1644; J1940